=== PATIENT | male | born 1970 | race Caucasian/White ===

== ENCOUNTER 2023-03-02 10:27 | Outpatient (CLI) | payer OTHER, SELFPAY | END 2023-03-02 10:28 | disposition home or self-care (01) | LOC: ANHAUDASC 10:28 | PROVIDERS: PCP Family Medicine; Visit Provider Otolaryngology | DX: H90.3 Sensorineural hearing loss, bilateral (principal); K21.9 Gastro-esophageal reflux disease without esophagitis; J30.2 Other seasonal allergic rhinitis | CPT/HCPCS: 92557; 92567 ==

== ENCOUNTER 2023-04-04 07:30 | Outpatient (RCR) | payer OTHER, SELFPAY | END 2023-06-10 23:59 | disposition home or self-care (01) | LOC: ANHAUDASC 07:30 | PROVIDERS: PCP Family Medicine; Visit Provider Otolaryngology | DX: Z46.1 Encounter for fitting and adjustment of hearing aid (principal) | CPT/HCPCS: 99199; V5261 ==

== ENCOUNTER 2023-04-04 07:57 | Outpatient (CLI) | payer OTHER, SELFPAY ==
[2023-04-04 13:00] LABS: Alanine Aminotransferase 63 U/L (6-50); Albumin Level 4.2 g/dL (3.5-5.1); Alkaline Phosphatase 83 U/L (38-126); Anion Gap 8 mmol/L (8-16); Aspartate Amino Transferase 68 U/L (17-59); Bilirubin,Total 0.6 mg/dL (0.2-1.3); Blood Urea Nitrogen 15 mg/dL (9-20); Carbon Dioxide 29 mmol/L (22-30); Chloride 104 mmol/L (98-107); Cholesterol 243 mg/dL (0-200); Estimated Glomerular Filt Rate > 60; Glucose 96 mg/dL (65-110); HDL Direct 62 mg/dL; Potassium 4.2 mmol/L (3.4-5.0); Sodium 141 mmol/L (137-145); Triglycerides 120 mg/dL (<150); Uric Acid 8.3 mg/dL (3.5-8.5)
[2023-04-04 13:01] LABS: LDL Cholesterol Direct 146 mg/dL
[2023-04-04 13:29] LABS: Prostate Specific Antigen 1.3 ng/mL (< OR = 4.0)
== END 2023-04-04 07:58 | disposition home or self-care (01) ==
LOC: ANHGOSHLAB 07:59
PROVIDERS: PCP Family Medicine; Visit Provider Family Medicine
DX: E78.2 Mixed hyperlipidemia (principal); E79.0 Hyperuricemia without signs of inflammatory arthritis and tophaceous disease; Z12.5 Encounter for screening for malignant neoplasm of prostate
CPT/HCPCS: 36415; 80053; 80061; 84153; 84550; G0103

== ENCOUNTER 2023-09-11 02:48 | Day surgery (SDC) | payer OTHER, SELFPAY ==
[2023-08-27 14:50] VITALS: BMI 28.1
[2023-09-11 07:22] VITALS: BP 168/90; PULSE 65; RESP 18; TEMP 36.1; O2SAT 99
[2023-09-11] MEDS: LACTATED RINGERS 1,000 ML 150 ML IV CONT (07:32)
--- NOTE | 2023-09-11 07:48 | WPDANESEPPF ---
Anes - Initial Pre Proc Eval Procedure: Operation Date: 09/11/23 08:30 Proposed Procedures p Screening Colonoscopy - Guanako Colon MD Date/Time: 09/11/23 07:48 Surgeon: Guanako Colon MD Pre Op Diagnosis: neoplasm screening Patient Data Age: 53 Gender: M Height: 1.75 m Weight: 85.8 kg Last Vital Signs Temp 97 F L 09/11/23 07:22 Pulse 65 09/11/23 07:22 Resp 18 09/11/23 07:22 BP 168/90 H 09/11/23 07:22 Pulse Ox 99 09/11/23 07:22 O2 Del Method Room Air 09/11/23 07:22 Allergies Allergy/AdvReac Type Severity Reaction Status Date / Time pitavastatin [Livalo] Allergy Unknown Unknown Verified 09/11/23 07:19 sulfite Allergy Unknown Palpitation Verified 09/11/23 07:19 s Sulfa (Sulfonamide AdvReac Intermediate ELEVATED Verified 09/11/23 07:19 Antibiotics) BP AND HR Home Medications Medication Instructions Recorded Confirmed Type fluticasone propionate 50 1 spray intranasal DAILY 03/11/21 08/27/23 History mcg/actuation nasal spray,suspension (Flonase Allergy Relief) omeprazole 40 mg capsule,delayed 40 mg PO DAILY #30 caps 04/25/23 08/27/23 Rx release alprazolam 0.25 mg tablet 0.25 mg PO TID PRN anxiety 08/27/23 08/27/23 History azelastine 137 mcg (0.1 %) nasal 137 mcg intranasal HS 08/27/23 08/27/23 History spray aerosol Patient hx anesthesia problems: none Family hx anesthesia problems: none Results Review: All pre-operative results and documents have been reviewed as part of the pre-operative evaluation. [facility] Past Medical History Medical History Overweight (BMI 25.0-29.9) Seborrheic keratoses Family History Family History Father Family history of elevated blood lipids Acute myocardial infarction Social History Social History Smoking status: Current every day smoker Tobacco type: e-cigarettes/vaping Alcohol intake: current Drinks per week: 3 Substance use type: does not use Lack of Transportation: No Lack of Food: Never True Current Housing: I Have Housing Concerned About Future Housing: No Difficulty Paying Gas/Electric Bills: No Difficulty Paying for Meds: No Currently Unemployed: No Education: Associate Degree Difficulty w/ Childcare or Family Care: No Living arrangements: other Additional living arrangements comments: with nicole Holder Final PreProcedure Day of Procedure 09/11/23 07:48 Patient weight: normal Heart: regular rate and rhythm Lungs: clear to auscultation Airway: Mallampati scale class II Neurological: alert and oriented Last oral intake: >/= 8 hours ASA classification: III Emergent: no Anesthetic plan: proceed Anesthesia type and monitoring: general GIVS and standard monitoring Results Review: All pre-operative results and documents have been reviewed as part of the pre-operative evaluation. Informed Consent: The patient's anesthetic plan and its attendant risks and benefits were discussed with the patient/family/POA. Questions were solicited and answers provided to the satisfaction of the patient/family/POA.
--- NOTE | 2023-09-11 08:10 | PM.HPGS ---
History of Present Illness History of Present Illness Consent: Risks, benefits, and alternatives have been discussed and questions answered. Patient agrees to proceed with procedure. Chief complaint: neoplasm screening Narrative: Darek Mijares is a 53 year old male here for first screening colonoscopy Review of Systems Review of Systems: All systems reviewed & are unremarkable except as noted in HPI and below PMFSH Past Medical History Medical History Overweight (BMI 25.0-29.9) Seborrheic keratoses Family History Family History Father Family history of elevated blood lipids Acute myocardial infarction Social History Social History Smoking status: Current every day smoker Tobacco type: e-cigarettes/vaping Alcohol intake: current Drinks per week: 3 Substance use type: does not use Lack of Transportation: No Lack of Food: Never True Current Housing: I Have Housing Concerned About Future Housing: No Difficulty Paying Gas/Electric Bills: No Difficulty Paying for Meds: No Currently Unemployed: No Education: Associate Degree Difficulty w/ Childcare or Family Care: No Living arrangements: other Additional living arrangements comments: with sp Meds Home Medications and Allergies Home Medications Medication Instructions Recorded Confirmed Type fluticasone propionate 50 1 spray intranasal DAILY 03/11/21 08/27/23 History mcg/actuation nasal spray,suspension (Flonase Allergy Relief) omeprazole 40 mg capsule,delayed 40 mg PO DAILY #30 caps 04/25/23 08/27/23 Rx release alprazolam 0.25 mg tablet 0.25 mg PO TID PRN anxiety 08/27/23 08/27/23 History azelastine 137 mcg (0.1 %) nasal 137 mcg intranasal HS 08/27/23 08/27/23 History spray aerosol Allergies Allergy/AdvReac Type Severity Reaction Status Date / Time pitavastatin [Livalo] Allergy Unknown Unknown Verified 09/11/23 07:19 sulfite Allergy Unknown Palpitation Verified 09/11/23 07:19 s Sulfa (Sulfonamide AdvReac Intermediate ELEVATED Verified 09/11/23 07:19 Antibiotics) BP AND HR Vital Signs Vital Signs - 24 hr 09/11/23 07:22 Temperature 97 F L Pulse Rate 65 Respiratory Rate 18 Blood Pressure 168/90 H Pulse Oximetry 99 Oxygen Delivery Room Air Exam Const: General: comfortable and no acute distress HENMT: Face/Nose/Sinus: Normal nares present Eyes: General: appearance normal, both eyes and all related structures Neck: Neck: no JVD Resp: Auscultation: clear to auscultation bilaterally Cardio: Rate: regular rate Rhythm: regular rhythm GI: Inspection: non-distended GI Palp: Yes Soft to palpation Skin: General skin exam: normal color Neuro: General: gait normal Speech: normal speech Extrem: General: normal to inspection Psych: Mental Status: mental status grossly normal Assessment and Plan Assessment and plan (1) Colon cancer screening: Code(s): Z12.11 - Encounter for screening for malignant neoplasm of colon Status: Acute Assessment and Plan: colonoscopy
[2023-09-11 08:37] VITALS: BP 119/81; PULSE 75; RESP 14; O2SAT 100
[2023-09-11 08:47] VITALS: BP 131/89; PULSE 68; RESP 13; O2SAT 100
[2023-09-11 08:57] VITALS: BP 158/99; PULSE 68; RESP 23; O2SAT 100
== END 2023-09-11 09:15 | disposition home or self-care (01) ==
PROVIDERS: PCP Family Medicine; Visit Provider Internal Medicine Gastroenterology
PROC: 0DJD8ZZ Inspection of Lower Intestinal Tract, Via Natural or Artificial Opening Endoscopic (ICD-10-PCS; CPT 45378; principal; 2023-09-11 08:30)
DX: Z12.11 Encounter for screening for malignant neoplasm of colon (principal); D12.4 Benign neoplasm of descending colon; K63.5 Polyp of colon; K64.8 Other hemorrhoids; K57.30 Diverticulosis of large intestine without perforation or abscess without bleeding; F17.290 Nicotine dependence, other tobacco product, uncomplicated; Z82.49 Family history of ischemic heart disease and other diseases of the circulatory system
CPT/HCPCS: 45385; 88305; J2704; J7120

== ENCOUNTER 2023-11-05 14:14 | Outpatient (CLI) | payer OTHER, SELFPAY ==
--- NOTE | ~2023-11-05 | XR_ITS ---
EXAMINATION: XR hip RT 2V w AP pelvis DATE: 11/05/2023 14:35 INDICATION: Right hip pain. TECHNIQUE: An anteroposterior view of the pelvis and 2 views of right hip were obtained. COMPARISON: None. FINDINGS: There is a total left hip arthroplasty in near-anatomic alignment. No fracture. There is mi ld right hip osteoarthritis. There is mild lumbar spondylosis. IMPRESSION: 1. Mild right hip osteoarthritis. 2. Total left hip arthroplasty in near-anatomic alignment. Reviewed, dictated and finalized at location E.
== END 2023-11-05 14:15 ==
PROVIDERS: PCP Family Medicine; Visit Provider Nurse Practitioner Family
DX: M16.11 Unilateral primary osteoarthritis, right hip (principal)
CPT/HCPCS: 73502

== ENCOUNTER 2024-01-25 08:08 | Outpatient (CLI) | payer OTHER, SELFPAY ==
[2024-01-25 14:26] LABS: Alanine Aminotransferase 79 U/L (6-50); Albumin Level 4.4 g/dL (3.5-5.1); Alkaline Phosphatase 86 U/L (38-126); Aspartate Amino Transferase 107 U/L (17-59); Bilirubin,Total 0.8 mg/dL (0.2-1.3)
[2024-01-25 14:27] LABS: Hepatitis B Surface Antigen Negative (Negative)
[2024-01-25 14:32] LABS: HAV RESULT Negative (Negative); Hepatitis B Core IgM Result Negative (Negative)
[2024-01-25 14:44] LABS: Hepatitis C Virus Antibody Negative (Negative)
[2024-01-30 01:39] LABS: Testosterone Total 536 ng/dL (250-1100)
== END 2024-01-25 08:09 | disposition home or self-care (01) ==
LOC: ANHGOSHLAB 08:09
PROVIDERS: PCP Family Medicine; Visit Provider Family Medicine
DX: R74.01 Elevation of levels of liver transaminase levels (principal)
CPT/HCPCS: 36415; 80074; 80076; 84403

== ENCOUNTER 2024-02-12 08:15 | Outpatient (CLI) | payer OTHER, SELFPAY ==
--- NOTE | ~2024-02-12 | US_ITS ---
Abdominal Sonogram: Real-time sonographic imaging of the abdomen was performed. Clinical History: Abnormal liver transaminase levels Findings: The liver appears echogenic, with no evidence of mass lesion or bile duct dilatation. Main portal vein demonstrates normal direction of flow. The spleen is normal in size without evidence of focal lesion. The gallbladder is well distended, and appears normal with no evidence of gallstone or wall thickening. The common bile duct measures 4 mm. The visualized pancreas, aorta, and IVC are un remarkable. The right kidney measures 10.6 cm in length and the left kidney measures 11.6 cm. There is no hydronephrosis or renal calculus. Impression: Diffuse fatty infiltration of the liver. Reviewed, dictated and finalized at location M. Impression: Diffuse fatty infiltration of the liver.
== END 2024-02-12 08:16 | disposition home or self-care (01) ==
LOC: GOSHIMG 08:16
PROVIDERS: PCP Family Medicine; Visit Provider Family Medicine
DX: R74.01 Elevation of levels of liver transaminase levels (principal); K76.0 Fatty (change of) liver, not elsewhere classified
CPT/HCPCS: 76700

== ENCOUNTER 2024-10-13 07:34 | Outpatient (CLI) | payer OTHER, SELFPAY | END 2024-10-13 07:35 | disposition home or self-care (01) | LOC: ANHAUDASC 07:34 | PROVIDERS: PCP Family Medicine; Visit Provider Family Medicine | DX: H90.3 Sensorineural hearing loss, bilateral (principal); H90.0 Conductive hearing loss, bilateral; H93.19 Tinnitus, unspecified ear | CPT/HCPCS: 92557; 92567 ==